=== PATIENT | female | born 1980 | race American Indian/Alaskan Native ===

== ENCOUNTER 2016-06-24 06:10 | Day surgery (SDC) | payer MEDICAID, OTHER ==
[2016-06-23 12:47] LABS: Basophils % (Auto) 0.4 % (0.0-1.8); Eosinophils % (Auto) 0.7 % (0.0-4.3); Mean Corpuscular HGB Conc 33 % (30-34); Mean Corpuscular Hemoglobin 26 pg (28-32); Mean Corpuscular Volume 80 fl (79-97); Platelet Count 209 K/mm3 (140-440); Red Cell Distribution Width 15.6 % (13.2-15.2); White Blood Count 7.1 K/mm3 (4.5-11.0)
--- NOTE | 2016-06-23 12:56 | Anesthesia Consultation ---
Anesthesia Consult and Med Hx Date of service: 06/23/16 - Airway Anesthetic Teeth Evaluation: Good ROM Head & Neck: Adequate Mental/Hyoid Distance: Adequate Mallampati Class: Class II Intubation Access Assessment: Probably Good - Pulmonary Exam CTA: Yes - Cardiac Exam Cardiac Exam: RRR - Pre-Operative Health Status ASA Pre-Surgery Classification: ASA2 Proposed Anesthetic Plan: General - Pulmonary Hx Smoking: No Hx Asthma: No Hx Sleep Apnea: No - Cardiovascular System Hx Hypertension: Yes (x 8 mos) - Central Nervous System Hx Seizures: No CVA: No Hx Psychiatric Problems: No - Gastrointestinal Hx Gastroesophageal Reflux Disease: Yes - Hematic Hx Anemia: Yes - Other Systems Hx Alcohol Use: Yes (occas) Hx Cancer: No Hx Obesity: Yes
[2016-06-23 13:02] LABS: Anion Gap 15 mmol/L; Blood Urea Nitrogen 16 mg/dL (7-17); Calcium 9.2 mg/dL (8.4-10.2); Carbon Dioxide 25 mmol/L (22-30); Chloride 103.7 mmol/L (98-107); Glucose 95 mg/dL (65-100); Sodium 140 mmol/L (137-145)
--- NOTE | 2016-06-23 22:06 | Short Stay Summary ---
Short Stay Documentation Date of service: 06/24/16 - History Principal diagnosis: Menorrhagia H&P: obtained from office Past Medical History: No medical history Past Surgical History: , Other (tubal ligation) Social history: no significant social history - Allergies and Medications Current Medications: Allergies No Known Allergies Allergy (Verified 06/20/16 13:59) Home Medications Medication Instructions Recorded Confirmed Last Taken Type Lisinopril/Hydrochlorothiazide 1 tab PO DAILY 06/20/16 06/20/16 Unknown History [Lisinopril-Hctz 20-25 mg Tab] Omeprazole (Nf) [PriLOSEC (Nf)] 20 mg PO DAILY 06/20/16 06/20/16 Unknown History Active Medications Famotidine (Pepcid) 20 mg PO PREOP NR Stop: 06/24/16 23:59 Lactated Ringer's (Lactated Ringers) 1,000 mls @ 75 mls/hr IV DIRECT ISADORA Cefazolin Sodium (Ancef/Sterile Water 2 Gm/20 Ml) 2 gm in 20 mls @ 80 mls/hr IV PREOP NR PRN Reason: Protocol Midazolam HCl (Versed) 2 mg IV PREOP NR Stop: 06/24/16 23:59 - Physical exam General appearance: no acute distress HEENT: Atraumatic Lungs: Clear to auscultation Breasts: deferred Heart: Regular rate, Normal S1, Normal S2 Gastrointestinal: normal, normoactive bowel sounds Female Genitourinary: normal Rectal Exam: deferred Extremities: no ischemia Neurological: Normal gait, Normal speech, Strength at 5/5 X4 ext Short Stay Discharge Plan Follow up with: PRIMARY CARE, [Primary Care Provider] - 7 Days
[~2016-06-24 06:10] MED LIST: LACTATED RINGERS 1,000 ML IV SCH; PEPCID PO NR; VERSED IV NR
[2016-06-24] MEDS ORDERED: NACL BACTERIOSTATIC INFILTRATI ONE (06:32)
[2016-06-24] MEDS ORDERED: DILAUDID IV PRN (06:58)
[2016-06-24] MEDS ORDERED: NORCO 5/325 PO PRN (06:58)
[2016-06-24] MEDS ORDERED: ZOFRAN IV PRN (06:58)
[2016-06-24] MEDS ORDERED: ANCEF/STERILE WATER 2 GM/20 ML 2 GM/20 ML SYRINGE IV NR (07:00)
[2016-06-24] MEDS ORDERED: DIPRIVAN 10 MG/ML IV ONE (07:15)
[2016-06-24] MEDS ORDERED: DILAUDID ONE (07:16)
[2016-06-24] MEDS ORDERED: XYLOCAINE MPF 2% ONE (07:16)
[2016-06-24] MEDS ORDERED: NACL 0.9% IR ONE (08:00)
[2016-06-24] MEDS ORDERED: SILVER NITRATE TP ONE (08:00)
[2016-06-24] MEDS ORDERED: MONSEL'S TP ONE (08:00)
[2016-06-24] MEDS ORDERED: ZOFRAN ONE (08:06)
[2016-06-24] MEDS ORDERED: DECADRON ONE (08:06)
--- NOTE | 2016-06-24 08:32 | Anesthesia Day of Surgery ---
Anesthesia Day of Surgery - Day of Surgery Patient Examined: Yes Patient H&P Reviewed: Yes Patient is NPO: Yes
--- NOTE | 2016-06-24 08:36 | Short Stay Summary ---
Short Stay Documentation Date of service: 06/24/16 - History Principal diagnosis: menorrhagia H&P: obtained from office Past Medical History: GERD, hypertension (lisinopril) Past Surgical History: , Other (tubal ligation) Social history: no significant social history - Allergies and Medications Current Medications: Allergies No Known Allergies Allergy (Verified 06/20/16 13:59) Home Medications Medication Instructions Recorded Confirmed Last Taken Type Lisinopril/Hydrochlorothiazide 1 tab PO DAILY 06/20/16 06/20/16 Unknown History [Lisinopril-Hctz 20-25 mg Tab] Omeprazole (Nf) [PriLOSEC (Nf)] 20 mg PO DAILY 06/20/16 06/20/16 Unknown History Active Medications Famotidine (Pepcid) 20 mg PO PREOP NR Stop: 06/24/16 23:59 Last Admin: 06/24/16 07:10 Dose: 20 mg Hydromorphone HCl (Dilaudid) 0.5 mg IV Q10MIN PRN PRN Reason: Pain , Severe (7-10) Stop: 06/27/16 06:59 Lactated Ringer's (Lactated Ringers) 1,000 mls @ 75 mls/hr IV DIRECT ISADORA Last Admin: 06/24/16 06:20 Dose: 75 mls/hr Cefazolin Sodium (Ancef/Sterile Water 2 Gm/20 Ml) 2 gm in 20 mls @ 80 mls/hr IV PREOP NR PRN Reason: Protocol Stop: 06/24/16 23:05 Midazolam HCl (Versed) 2 mg IV PREOP NR Stop: 06/24/16 23:59 Last Admin: 06/24/16 07:10 Dose: 2 mg - Physical exam Breasts: deferred Heart: Regular rate, Normal S1, Normal S2 Gastrointestinal: normal Female Genitourinary: normal Extremities: no ischemia - Brief post op/procedure progress note Date of procedure: 06/24/16 Pre-op diagnosis: menorrhagia Post-op diagnosis: other Procedure: Novasure endometrial ablation Anesthesia: GETA Findings: uterus 11 weeks size. Normal uterine cavity on hysteroscopy. Novasure procedure lasted 49 seconds for power of 172. cavity length= 6.5, width =4.8 Surgeon: CHRISTOPHER SHEPHERD Estimated blood loss: minimal Pathology: none Condition: stable - Hospital course Hospital course: routine post op course - Disposition Condition at discharge: Good Disposition: DISCHARGED TO HOME OR SELFCARE - Discharge Diagnoses (1) Menorrhagia Status: Acute Qualifiers: Menorrahagia type: M (2) Status post endometrial ablation Status: Acute Short Stay Discharge Plan Activity: no restrictions Diet: regular Special Instructions: other (nothing per vagina x 4 weeks) Follow up with: PRIMARY MD GERMAN [Primary Care Provider] - 7 Days CHRISTOPHER SHEPHERD MD [Staff Physician] - 7 Days Prescriptions: Doxycycline [Vibramycin CAP] 100 mg PO Q12HR #14 capsule Ibuprofen [Motrin 800 MG tab] 800 mg PO Q8HR PRN #30 tablet PRN Reason: Mild Pain Unrelieved By Apap oxyCODONE /ACETAMINOPHEN [Percocet 5/325] 1 tab PO Q6HR PRN #30 tablet PRN Reason: Pain
[2016-06-24] MEDS ORDERED: PERCOCET 5/325 PO PRN (08:45)
--- NOTE | 2016-06-24 08:53 | Post Anesthesia Evaluation ---
- Post Anesthesia Evaluation Patient Participated: Yes Airway Patent: Yes Stable Respiratory Function: Yes Temp > 96.8F: Yes Pain Manageable: Yes Adequeate Hydration: Yes Anesthesia Complications: No Block Receding Appropriately: Not Applicable
[2016-06-24 09:22] VITALS: BP 149/93
[2016-06-24] MEDS ORDERED: PERCOCET 5/325 PO ONE (09:31)
--- NOTE | 2016-06-24 09:43 | Operative Report ---
Operative Report Operative Report: Date-06/24/16 Preop - Menorrhagia Post op -same Procedure- Hysteroscopy and Endometrial ablation Surgeon- Dr Martina Thomason Findings- [normal uterine cavitiy , cavity length= +6.5 CM, width= 4.8, Anethesia- General EBl - Minimal Specimen- none Procedure- Pt was taken to the OR. General anesthsia was given. pt was placed in the Dorsal lithotomy position. Pt was prepped and drapped in the usual sterile fashion. Bimanual exam was performed, which showed a [10 ]week size uterus. Next the speculum was inserted. The cervix was grasped with a single tooth tenaculum. A sound was passed through the os. the uterus sounded to [11 ] cm. Next the cervical length+ 4 cm. The os was dilated. The hyteroscope was inserted. The uterine cavity was visualized and noted to be normal. Next tne Novasure device was seated. the cavity widith was noted to be 4.8. the endomertial ablation was performed. at a power of 172 for 49 seconds. The procedure was then terminated . The Nocvasure device, the tenaculum and speculum were removed. The pateint was returned to the supine position and awakened. Pt was transferred to recovery in stable
== END 2016-06-24 10:23 | disposition home or self-care (01) ==
LOC: OR 06:10
PROVIDERS: ATTEND Specialist
DX: N92.0 Excessive and frequent menstruation with regular cycle (principal); K21.9 Gastro-esophageal reflux disease without esophagitis; I10 Essential (primary) hypertension; D64.9 Anemia, unspecified; E66.9 Obesity, unspecified; Z68.30 Body mass index [BMI] 30.0-30.9, adult; Z79.899 Other long term (current) drug therapy; Z98.51 Tubal ligation status; Z72.89 Other problems related to lifestyle
CPT/HCPCS: 36415; 58563; 80048; 84703; 85025; 86850; 86900; 86901; A4217; J0690; J1100; J1170; J2250; J2405; J2704; J7120